=== PATIENT | female | born 1945 ===

== ENCOUNTER 2016-11-24 08:16 | Outpatient (CLI) | payer MEDICARE, OTHER ==
--- NOTE | 2016-11-24 09:14 | Mammography Report ---
BILATERAL MAMMOGRAM with CAD: HISTORY: Cancer screening. FINDINGS: There are scattered fibroglandular densities (approximately 25%-50% glandular). No mass, distortion, suspicious calcification, or skin change is seen. IMPRESSION: Negative mammogram. There is no mammographic evidence of malignancy. RECOMMENDATION: Follow-up per ACS guidelines. BI-RADS CATEGORY: 1 = Negative ACR BI-RADS MAMMOGRAPHIC CODES: 0 = Needs additional imaging evaluation; 1 = Negative; 2 = Benign; 3 = Probably benign; 4 = Suspicious; 5 = Malignant; 6 = Known biopsy-proven malignancy COMMENT: 1. Dense breast tissue, i.e., adenosis, fibrocystic changes, etc., may obscure an underlying neoplasm. 2. Approximately 10% of cancers are not detected with mammography. 3. A negative mammography report should not delay biopsy if a clinically suspicious mass is present. COMMENT: Patient follow-up letters are generated in [facility].
== END 2016-11-24 08:17 | disposition home or self-care (01) ==
LOC: SPVWC 08:16
PROVIDERS: ATTEND Internal Medicine
DX: Z12.31 Encounter for screening mammogram for malignant neoplasm of breast (principal)
CPT/HCPCS: 77067; G0202

== ENCOUNTER 2016-11-28 11:11 | Outpatient (CLI) | payer MEDICARE, OTHER ==
--- NOTE | 2016-11-28 11:57 | XRay Report ---
LEFT HIP, 2 views: History: Left hip pain. The bony architecture is intact without evidence of fracture or dislocation. No significant soft tissue abnormality is seen. IMPRESSION: Normal left hip.
== END 2016-11-28 11:12 | disposition home or self-care (01) ==
LOC: SPVIMAG 11:11
PROVIDERS: ATTEND Internal Medicine
DX: M25.552 Pain in left hip (principal)

== ENCOUNTER 2017-04-21 13:24 | Outpatient (CLI) | payer MEDICARE, OTHER ==
--- NOTE | 2017-04-21 15:05 | XRay Report ---
CERVICAL SPINE SERIES THREE VIEWS: 04/21/17 13:24:00 CLINICAL: Headache. FINDINGS: Degenerative disc disease with anterior osteophytes at C5-6 and C6-7. Mild disc space narrowing at C6-7 with slightly larger osteophytes. The rest of the levels are normal. No fracture or subluxation. Normal odontoid and C1. Normal soft tissues and airway. IMPRESSION: Moderate degenerative disc disease at C5-6 and C6-7.
== END 2017-04-21 13:25 | disposition home or self-care (01) ==
LOC: SPVIMAG 13:24
PROVIDERS: ATTEND Internal Medicine
DX: M50.322 Other cervical disc degeneration at C5-C6 level (principal); M50.323 Other cervical disc degeneration at C6-C7 level; R51 Headache
CPT/HCPCS: 72040

== ENCOUNTER 2017-12-25 09:58 | Outpatient (CLI) | payer MEDICARE, OTHER ==
--- NOTE | 2017-12-25 16:23 | Mammography Report ---
BILATERAL DIGITAL SCREENING MAMMOGRAM with CAD: 12/25/17 09:58:00 CLINICAL: Routine screening. COMPARISON:11/24/16 FINDINGS: There are bilateral scattered fibroglandular densities. A right asymmetry on the CC view requires additional imaging.No architectural distortion or suspicious calcifications.The left breast is negative. IMPRESSION: Right asymmetry requiring further workup. BI-RADS CATEGORY: 0 -- Additional Imaging Evaluation Required RECOMMENDATION: Recall for right lateralmedial and spot magnification CC views and right breast ultrasound if needed. ACR BI-RADS MAMMOGRAPHIC CODES: 0 = Needs additional imaging evaluation; 1 = Negative; 2 = Benign; 3 = Probably benign; 4 = Suspicious; 5 = Malignant; 6 = Known biopsy-proven malignancy COMMENT: 1. Dense breast tissue, i.e., adenosis, fibrocystic changes, etc., may obscure an underlying neoplasm. 2. Approximately 10% of cancers are not detected with mammography. 3. A negative mammography report should not delay biopsy if a clinically suspicious mass is present. COMMENT: Patient follow-up letters are generated via our [employer] application.
== END 2017-12-25 09:59 | disposition home or self-care (01) ==
LOC: SPVWC 09:58
PROVIDERS: ATTEND Internal Medicine
DX: Z12.31 Encounter for screening mammogram for malignant neoplasm of breast (principal)
CPT/HCPCS: 77067